=== PATIENT | male | born 1940 ===

== ENCOUNTER 2020-07-04 08:09 | Observation (INO) ==
[2020-07-04] MEDS ORDERED: NS 0.9% 1000 ml BAG 1,000 ML IV ONE (08:24)
[2020-07-04 08:56] LABS: ABS Eosinophils 0.1 10^3/ul (0-0.6); ABS Monocytes 0.3 10^3/ul (0-0.8); ABS Neutrophils 1.6 10^3/ul (1.5-7.7); Eosinophil % 2.3 %; Hematocrit 39 % (42-52); Hemoglobin 13.6 g/dL (14.0-18.0); Lymphocyte % 33.8 %; Mean Corpuscular HGB Conc 35 g/dL (31-36); Mean Corpuscular Hemoglobin 35 pg (27-31); Mean Corpuscular Volume 100 fL (80-94); Mean Platelet Volume 8.2 fL (7.4-10.4); Platelet Count 197 10^3/uL (150-450); Red Blood Count 3.93 10^6 /uL (4.18-5.48); Red Cell Distribution Width 13 % (10-15)
[2020-07-04 09:17] LABS: ALT 23 U/L (7-52); AST 29 U/L (13-39); Albumin 4.3 g/dL (3.2-5.2); Albumin/Globulin Ratio 1.8 (1-3); Alkaline Phosphatase 65 U/L (34-104); Anion Gap 5 mmol/L (2-11); Blood Urea Nitrogen 16 mg/dL (6-24); CO2 Carbon Dioxide 30 mmol/L (22-32); Chloride 104 mmol/L (101-111); EGFR African American 104.1 (>60); Globulin 2.4 g/dL (2-4); Glucose 92 mg/dL (70-100); Potassium 4.2 mmol/L (3.5-5.0); Sodium 139 mmol/L (135-145); Total Protein 6.7 g/dL (6.4-8.9)
[2020-07-04 09:21] LABS: Troponin I 0.14 ng/mL (<0.03)
[2020-07-04] MEDS ORDERED: Iodixanol (CONTRAST) 320 MG/ML 100 ML SDV IV ONE (09:37)
[2020-07-04 11:35] LABS: Troponin I 0.14 ng/mL (<0.03)
[2020-07-04 12:07] LABS: Folate > 20.00 ng/mL (5.90-24.80)
[2020-07-04 12:08] LABS: Vitamin B12 347 pg/mL (180-914)
[2020-07-04 14:46] LABS: Troponin I 0.14 ng/mL (<0.03)
[2020-07-04 14:55] LABS: C Reactive Protein 1.91 mg/L (<8.01)
[2020-07-04] MEDS: Heparin 5000 UNITS/ML 1 mL VIAL SUBCUT SCH ×2 (15:47→21:30)
[2020-07-05] MEDS: Heparin 5000 UNITS/ML 1 mL VIAL SUBCUT SCH (05:29)
[2020-07-05 06:43] LABS: Calcium 8.6 mg/dL (8.6-10.3); EGFR African American 118.2 (>60); EGFR Non-African American 97.7 (>60); Potassium 4.3 mmol/L (3.5-5.0)
[2020-07-05 07:49] LABS: ABS Eosinophils 0.1 10^3/ul (0-0.6); ABS Lymphocytes 1.2 10^3/ul (1.0-4.8); ABS Monocytes 0.2 10^3/ul (0-0.8); ABS Neutrophils 1.6 10^3/ul (1.5-7.7); Eosinophil % 2.9 %; Hematocrit 37 % (42-52); Hemoglobin 12.9 g/dL (14.0-18.0); Lymphocyte % 38.7 %; Mean Corpuscular HGB Conc 35 g/dL (31-36); Mean Corpuscular Hemoglobin 35 pg (27-31); Mean Corpuscular Volume 100 fL (80-94); Mean Platelet Volume 8.6 fL (7.4-10.4); Nucleated Red Blood Cells % 0.1; Platelet Count 184 10^3/uL (150-450); Red Blood Count 3.73 10^6 /uL (4.18-5.48); Red Cell Distribution Width 14 % (10-15); White Blood Count 3.1 10^3/uL (3.5-10.8)
[2020-07-05 11:24] VITALS: BP 98/60
[2020-07-09 13:46] LABS: Lambda Free Light Chain, S 1.52 mg/dL
[2020-07-10 10:56] LABS: Protein,Total, Random Urine <4 mg/dL
[2020-07-10 13:56] LABS: Albumin 3.6 g/dL (3.4-4.7); Albumin/Globulin Ratio 1.25; Gamma Globulin 0.7 g/dL (0.6-1.6); Total Protein(PEP) 6.5 g/dL (6.3 - 7.9)
== END 2020-07-05 13:33 | disposition home or self-care (01) ==
LOC: MEDTELE 08:09 → ED 08:09 → MEDTELE 12:15
PROVIDERS: ADMIT Internal Medicine; ATTEND Hospitalist